=== PATIENT | male | born 1980 | race Caucasian/White ===

== ENCOUNTER 2020-03-04 09:52 | Emergency (ER) | payer OTHER, SELFPAY ==
--- NOTE | 2020-03-04 09:57 | ED.ABDPAIN ---
HPI - Abdominal Pain General Chief Complaint: Abdominal Pain Stated Complaint: stomach pain Time Seen by Provider: 03/04/20 09:57 Source: patient Mode of arrival: ambulatory Limitations: no limitations History of Present Illness HPI narrative: Started with vomiting with a lot of blood, daily drinker, pain is around belt line. States that he has never been told that his liver is bad MD elicited complaint: abdominal pain Pertinent past history: gastritis Onset (ago): day(s) (2) Pain Consistency: constant Location: other (belt line) Quality: stabbing Related Data Previous Rx's Medication Instructions Recorded pantoprazole [Protonix] 40 mg PO DAILY #30 ea 03/04/20 Allergies Allergy/AdvReac Type Severity Reaction Status Date / Time No Known Allergies Allergy Unverified 01/10/20 15:53 [No Known Allergies*] Review of Systems Constitutional: Reports no additional constitutional complaints Eyes: Reports no additional eye complaints Denies dizziness Cardiovascular: Reports no additional cardiovascular complaints Respiratory: Reports as per HPI Gastrointestinal: Reports no additional gastrointestinal complaints Musculoskeletal: Reports no additional musculoskeletal complaints Skin/Breast: Denies rash Reports system reviewed and no additional complaints, except as documented, Denies dizziness and Denies Sensory deficit (Neuro) Psychiatric: Denies anxiety Physical Exam Vital Signs: Vital Signs: Last Vital Signs Temp 98.4 F 03/04/20 09:58 Pulse 89 03/04/20 09:58 Resp 18 03/04/20 09:58 BP 151/98 H 03/04/20 09:58 Pulse Ox 98 03/04/20 09:58 Body Mass Index 27.6 Const: General: healthy appearing Nutritional Appearance: average body habitus Orientation/consciousness: oriented to person and patient oriented x3 Limitations: no limitations HENMT: Head: Yes normal to inspection Ears: external ears normal General nose exam: Normal external nose present Mouth: Normal oral and palatal mucosa present and oropharynx normal Throat: Yes posterior oropharynx normal Eyes: General: appearance normal, both eyes and all related structures Neck: Other: supple Neck: Yes normal visual inspection Chest: Chest palpation & inspection: normal inspection of the chest Resp: Auscultation: clear to auscultation bilaterally Cardio: Jugular venous distension: no JVD Rate: regular rate Rhythm: regular rhythm Heart sounds: S1 normal heart sound present and S2 normal heart sound present GI: Inspection: Yes normal to inspection Palpation (GI): Soft to palpation, nontender and No hepatosplenomegaly present Auscultation: normal bowel sounds : Other: rectal heme negative General: Yes no CVA tenderness Back/Spine/Pelvis: Back: no CVA tenderness Skin: General skin exam: no rashes or lesions noted Neuro: General: oriented to person and patient oriented x3 Cranial nerves: Yes CN's II-XII intact bilaterally Motor exam (neuro): 5/5 motor strength present throughout Sensory Exam: No Sensory deficit (Neuro) Extrem: General: Yes normal to inspection Psych: Appearance: grossly normal Course Course Course Narrative: NGT lavage negative , rectal heme negative will dc home MDM - Abdominal Pain MDM Narrative Medical decision making narrative: Ulcer disease vs, esophageal varices vs sourav castillo vs gastritis. With no active bleeding and no evidence of liver disease will dc home on protonix Differential Diagnosis Differential diagnosis: Likely abdominal pain, gastritis and peptic ulcer disease Lab Data Result diagrams: 03/04/20 10:04 03/04/20 10:04 Labs: Lab Results 03/04/20 03/04/20 03/04/20 Range/Units 10:04 10:04 10:04 WBC 8.3 (4.8-10.8) X10*3/uL RBC 4.50 L (4.60-5.80) X10*6/uL Hgb 15.5 (14.0-18.0) g/dl Hct 43.1 (42-52) % MCV 95.8 (80-98) fL MCH 34.4 H (27.0-33.0) pg MCHC 36.0 (31.0-36.0) g/dl RDW 11.9 (11.0-16.0) % Plt Count 192 (160-400) X10*3/uL MPV 10.6 (9.4-12.4) fL Immature Gran % (Auto) 0.1 (0.0-0.4) % Neut % (Auto) 77.3 H (45-73) % Lymph % (Auto) 13.5 L (20-40) % [facility] % (Auto) 8.6 (2-11) % Eos % (Auto) 0.1 (0-4) % Baso % (Auto) 0.4 (0-2) % Lymph # (Auto) 1.1 L (1.2-4.9) X10*3/uL [facility] # (Auto) 0.7 (0.1-1.2) X10*3/uL Eos # (Auto) 0.0 (0.0-0.4) X10*3/uL Baso # (Auto) 0.0 (0.0-0.2) X10*3/uL Abs Immat Gran (auto) 0.01 (0.00-0.03) X10*3/uL Absolute Neuts (auto) 6.4 (2.0-8.3) X10*3/uL Absolute Nucleated RBC 0.000 (0.0-0.012) X10*3/uL Nucleated RBC % (auto) 0.0 (0.0-0.2) /100WBC PT 11.7 (10.8-13.0) SEC INR 1.0 (0.9-1.1) Sodium 136 (135-145) mmol/L Potassium 3.8 (3.3-5.1) mmol/l Chloride 100 (96-108) mmol/L Carbon Dioxide 25 (22-29) mmol/L Anion Gap 15 (12-20) BUN 13 (9-16) mg/dL Creatinine 1.21 (0.5-1.4) mg/dL Estim Creat Clear Calc 93.4 Estimated GFR > 60 Random Glucose 118 H (60-115) mg/dL Calcium 9.4 (8.4-10.2) mg/dL Total Bilirubin 1.2 H (0.0-1.0) mg/dL Direct Bilirubin 0.5 (0.0-0.5) mg/dL AST 43 H (5-37) U/L ALT 36 (0-40) U/L Alkaline Phosphatase 81 (39-117) U/L Total Protein 7.6 (6.5-8.0) g/dL Albumin 4.7 (3.5-5.0) g/dL Lipase 34 (8-78) U/L Discharge Plan Discharge Clinical Impression: Gastritis Qualifiers: Gastritis type: other gastritis Chronicity: acute Gastritis bleeding: with bleeding Qualified Code(s): K29.01 - Acute gastritis with bleeding Patient Disposition: Home, Self-Care Instructions: Gastritis (ED) Prescriptions: New pantoprazole [Protonix] [address] for susp in packet 40 mg PO DAILY Qty: 30 RF: 0 PMFSH Past Medical History Medical History No known health problems Social History Social History Alcohol intake: current Alcohol intake frequency: 0-2 drinks per day Smoked in Last 30 Days: No Use of substances other than those prescribed or required for medical reasons: No Advance Directives: Yes Advance Directives Information Provided: Yes Advance Directives on File: No
[2020-03-04 09:58] VITALS: BP 151/98; PULSE 89; RESP 18; TEMP 36.9; O2SAT 98; BMI 27.6
[2020-03-04] MEDS: 0.9 % Sodium Chloride 500 ML 999 ML IVCONT (10:07)
[2020-03-04] MEDS: ondansetron HCL 4 MG/2 ML VIAL IVPUSH (10:12)
[2020-03-04] MEDS: Pantoprazole Sodium 40 MG/10 ML VIAL IVPUSH (10:12)
[2020-03-04 10:13] LABS: MANUAL DIFF FLAG NO
[2020-03-04 10:16] LABS: Basophils Percent Auto 0.4 % (0-2); Eosinophils Percent Auto 0.1 % (0-4); Hematocrit 43.1 % (42-52); Hemoglobin 15.5 g/dl (14.0-18.0); Imm Gran Abs Auto 0.01 X10*3/uL (0.00-0.03); Imm Gran Pct Auto 0.1 % (0.0-0.4); Lymphocytes Absolute Auto 1.1 X10*3/uL (1.2-4.9); Lymphocytes Percent Auto 13.5 % (20-40); Mean Corpuscular Hemoglobin 34.4 pg (27.0-33.0); Mean Corpuscular Volume 95.8 fL (80-98); Mean Platelet Volume 10.6 fL (9.4-12.4); Monocytes Absolute Auto 0.7 X10*3/uL (0.1-1.2); Monocytes Percent Auto 8.6 % (2-11); Neutrophils Absolute Auto 6.4 X10*3/uL (2.0-8.3); Neutrophils Percent Auto 77.3 % (45-73); Platelet Count 192 X10*3/uL (160-400); Red Cell Distribution Width 11.9 % (11.0-16.0); White Blood Count 8.3 X10*3/uL (4.8-10.8)
[2020-03-04 10:19] LABS: Prothrombin Time 11.7 SEC (10.8-13.0)
--- NOTE | 2020-03-04 10:43 | PC.NURSE ---
ng tube inserted and no blood noted. removed. aware. pt tolerated well.
[2020-03-04 10:46] LABS: Alanine Aminotransferase 36 U/L (0-40); Albumin Level 4.7 g/dL (3.5-5.0); Alkaline Phosphatase 81 U/L (39-117); Anion Gap 15 (12-20); Aspartate Amino Transferase 43 U/L (5-37); Bilirubin Direct 0.5 mg/dL (0.0-0.5); Bilirubin Total 1.2 mg/dL (0.0-1.0); Blood Urea Nitrogen 13 mg/dL (9-16); Calcium 9.4 mg/dL (8.4-10.2); Carbon Dioxide 25 mmol/L (22-29); Chloride 100 mmol/L (96-108); Creatinine Clr Calc Pharmacy 93.4; Estimated Glomerular Filt Rate > 60; Glucose Random 118 mg/dL (60-115); Lipase 34 U/L (8-78); Potassium 3.8 mmol/l (3.3-5.1); Sodium 136 mmol/L (135-145); Total Protein 7.6 g/dL (6.5-8.0)
== END 2020-03-04 11:48 | disposition home or self-care (01) ==
PROVIDERS: Emergency Provider Emergency Medicine; PCP Nurse Practitioner Family
DX: K29.01 Acute gastritis with bleeding (principal); Z79.899 Other long term (current) drug therapy
CPT/HCPCS: 36415; 80048; 80076; 83690; 85025; 85610; 96374; 96375; 99284; J2405

== ENCOUNTER 2022-08-16 07:48 | Outpatient (REF) | payer OTHER, SELFPAY ==
[2022-08-16 11:21] LABS: MANUAL DIFF FLAG NO
[2022-08-16 11:42] LABS: Appearance Urine Clear; Color Urine Yellow; Glucose Urine UA Negative (Negative); Leukocyte Esterase Urine Negative (Negative); Nitrite Urine Negative (Negative); PH 5.5 (5.0-9.0); Specific Gravity - Urine 1.025 (1.005-1.025); Urine Blood Negative (Negative); Urine Ketones Negative (Negative); Urine Protein Negative (Neg-Trace)
[2022-08-16 11:43] LABS: Basophils Percent Auto 0.6 % (0-2); Eosinophils Absolute Auto 0.2 X10*3/uL (0.0-0.4); Hematocrit 44.4 % (42.0-52.0); Hemoglobin 15.3 g/dl (14.0-18.0); Imm Gran Abs Auto 0.01 X10*3/uL (0.00-0.03); Imm Gran Pct Auto 0.2 % (0.0-0.4); Lymphocytes Absolute Auto 1.5 X10*3/uL (1.2-4.9); Lymphocytes Percent Auto 28.7 % (20-40); Mean Corpuscular HGB Conc 34.5 g/dl (31.0-36.0); Mean Corpuscular Hemoglobin 33.8 pg (27.0-33.0); Mean Corpuscular Volume 98.2 fL (80.0-98.0); Mean Platelet Volume 11.1 fL (9.4-12.4); Monocytes Absolute Auto 0.6 X10*3/uL (0.1-1.2); Monocytes Percent Auto 10.9 % (2-11); Neutrophils Absolute Auto 2.8 x10*3/uL (2.0-8.3); Neutrophils Percent Auto 55.6 % (45-73); Platelet Count 202 X10*3/uL (160-400); Red Blood Count 4.52 X10*6/uL (4.60-5.80); Red Cell Distribution Width 13.2 % (11.0-16.0); White Blood Count 5.1 X10*3/uL (4.8-10.8)
[2022-08-16 12:06] LABS: Alanine Aminotransferase 26 U/L (0-40); Albumin Level 4.3 g/dL (3.5-5.0); Alkaline Phosphatase 81 U/L (39-117); Anion Gap 9 (12-20); Aspartate Amino Transferase 23 U/L (5-37); Bilirubin Total 0.8 mg/dL (0.0-1.0); Blood Urea Nitrogen 19 mg/dL (9-16); Calcium 9.1 mg/dL (8.4-10.2); Carbon Dioxide 30 mmol/L (22-29); Chloride 106 mmol/L (96-108); Cholesterol 177 mg/dL; Estimated Glomerular Filt Rate > 60; Glucose Fasting 94 mg/dL (60-99); HDL Cholesterol 67 mg/dL; LDL Cholesterol Calculated 74 mg/dl; Potassium 4.5 mmol/L (3.3-5.1); Sodium 140 mmol/L (135-145); Total Protein 6.8 g/dL (6.5-8.0); Triglycerides 181 mg/dL
[2022-08-16 12:13] LABS: TSH reflex Free T4 3.28 uIU/mL (0.32-4.0)
[2022-08-21 16:24] LABS: Testosterone, Free 55.8 pg/mL (35.0-155.0); Testosterone, Total 338 ng/dL (250-1100)
== END 2022-08-16 07:49 | disposition home or self-care (01) ==
LOC: HO.HMGCLDS 07:48
PROVIDERS: PCP Nurse Practitioner Family; Visit Provider Nurse Practitioner Family
DX: Z00.00 Encounter for general adult medical examination without abnormal findings (principal); N52.9 Male erectile dysfunction, unspecified; F41.9 Anxiety disorder, unspecified
CPT/HCPCS: 36415; 80053; 80061; 81003; 84402; 84403; 84443; 85025

== ENCOUNTER 2025-01-18 12:31 | Emergency (ER) | payer OTHER, SELFPAY ==
--- NOTE | ~2025-01-18 | XR_ITS ---
EXAMINATION: XR FOREARM, RIGHT CLINICAL INFORMATION: trauma COMPARISON: None available. TECHNIQUE: AP and lateral views of the right forearm were obtained. FINDINGS: Image includes the wrist on the x-ray. There is borderline widening of the scapholunate interval which measures 2.5 mm. No fracture lines are identified. XR/XR forearm RT 2V IMPRESSION: No acute fracture is visualized. There is borderline widening of scapholunate interval, partial tear of scapholunate ligament is not ruled out. Electronically signed by: Jace Arce MD 01/18/2025 01:25 PM EDT
--- NOTE | ~2025-01-18 | XR_ITS ---
EXAMINATION: XR ELBOW, RIGHT CLINICAL INFORMATION: trauma COMPARISON: None available. TECHNIQUE: AP, lateral, and oblique views of the right elbow. FINDINGS: Posterior fat pad is minimally visible. Anterior fat pad is mildly prominent. There is enthesophyte at olecranon. Small marginal osteophytes are present involving the proximal radioulnar joint. No fracture line is identified. XR/XR elbow RT min 3V IMPRESSION: There is evidence of an underlying small elbow joint effusion, and so while a fracture is not clearly visualized, a nondisplaced radial head or neck fracture is not ruled out. Follow up x-ray 7-10 days. Electronically signed by: Jace Arce MD 01/18/2025 01:24 PM EDT
[2025-01-18 13:00] VITALS: BP 133/86; PULSE 83; RESP 18; TEMP 36.3; O2SAT 97; BMI 27.0
--- NOTE | 2025-01-18 13:02 | ED_ITS ---
HPI - General Adult General Chief complaint: Extremity Injury, Upper Stated complaint: Arm injury/lac @ work Time Seen by Provider: 01/18/25 14:05 Source: patient, RN notes reviewed and old records reviewed Mode of arrival: ambulatory Limitations: no limitations History of Present Illness ED Provider: Charbel HPI narrative: 44-year-old male presents for evaluation of a right arm injury. Patient reports he was at work. He states that a 1000 lb lift gate fell onto his right arm. The patient reports that he was able to pull his arm out immediately and his arm was not trapped for any period of time. His arm was crushed around the elbow for a brief 2nd. He feels some tightness in his hand His pain is mild pain He has an abrasion on the inside of the right elbow His pain is a 6/10 Related Data Previous Rx's ?Medication ?Instructions ?Recorded sertraline 25 mg tablet 25 mg PO DAILY 10 days #10 t abs 08/17/22 sildenafil 25 mg tablet (Viagra) 25 mg PO DAILY PRN se xual activity 08/17/22 #10 tabs Allergies Allergy/AdvReac Type Severity Reaction Status Date / Time No Known Allergies (No Known Allergy Verified 01/18/25 13:02 Allergies*) Review of Systems Musculoskeletal: Musculoskeletal: Reports arthralgias, Reports joint swelling and Reports limited range of motion PMFSH Past Medical History Medical History No known health problems Family History Family History Father Substance use disorder Mother Substance use disorder Sister Substance use disorder Social History Social History Housing: Apartment Alcohol intake: current Alcohol intake frequency: 0-2 drinks per day Patient Tobacco Use Status: Never used Tobacco e-Cigarette/Vaping Use: Never Used Second Hand Smoke Exposure: No Advance Directives: No Advance Directives Information Provided: Yes service: Yes Current occupational status: employed 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 Current occupational exposures/hazards: Yes Cognitive needs: No Hearing needs: No Vision needs: No Physical Exam ED Vital Signs: Vital Signs - 24 hr 01/18/25 13:00 Temperature 97.3 F Pulse Rate 83 Respiratory Rate 18 Blood Pressure 133/86 Pulse Oximetry 97 Oxygen Delivery Method Room Air BMI result Body Mass Index 27.0 Const General: healthy appearing, comfortable, no acute distress, alert and awake Nutritional Appearance: well nourished Orientation/consciousness: patient oriented x3 HENMT Head: Yes normocephalic and Yes atraumatic Eyes Eyelids: Yes eyelids normal Conjunctivae: conjunctivae normal Sclerae: sclerae normal Corneas: corneas normal Pupils: Equal, round and reactive pupils present EOM: EOMs intact bilaterally Neck Neck: Yes full ROM Resp Effort & Inspection: normal respiratory effort, able to speak in complete sentences and not labored Skin Other: There was a small, 1 x 2 cm abrasion, superficial to the medial aspect of the right upper extremity at the elbow. The deep lacerations, no bleeding General skin exam: elasticity normal Neuro General: patient oriented x3 Cranial nerves: Yes Equal, round and reactive pupils present and Yes Bilaterally intact EOM present Cognition (Neuro): normal cognition Extrem Other: The patient has slightly limited range of motion with pronation of the right upper extremity. He has good range of motion with flexion-extension of the right elbow. He is able to flex and extend all digits of the right hand as well as flex and extend the right wrist. He has no tenderness to the right wrist or hand. Course Course Course Narrative: RME, this is a rapid medical exam performed by Brennan Barger please refer to primary provider for complete H&P- 54-year-old male presents for evaluation of right upper extremity injury. He was at work rib a lift gate that was a 1000 lb for onto his right arm. He has a small abrasion does not medial aspect of the right elbow. He reports some tight feeling in his hand. Radial pulses are 2+ and equal, compartments are soft to the right upper extremity above the elbow and below the elbow. Distal sensation intact. Plan for x-ray Reevaluation(s) Reevaluation #1: Patient's forearm x-ray shows borderline widening of the scapholunate interval suggestive of partial tear. However the patient does not have any right wrist tenderness or decreased range of motion. This is favored to be a bit of an over-read Time: 14:33 Medical Decision Making Medical Decision Making MDM Narrative: 44-year-old male presents for evaluation of a right elbow injury. He had a crush injury but was not pinned for an extended period of time. He has quite good range of motion but slightly limited with pronation of the right upper extremity. X-ray shows an anterior fat pad consistent with an occult radial head fracture. I discussed this with the patient. He was placed in his sling in his discharged to follow up with Orthopedics. I did discuss return precautions and red flag symptoms for compartment syndrome. Currently his compartments to the right humerus and right forearm are soft, nontender. Radial pulses 2+ and equal. Distal sensation and capillary refill is intact. I have a very low suspicion for compartment syndrome acutely Differential Diagnosis Differential Diagnoses: The differential diagnosis associated with the presentation includes Right elbow fracture Elbow sprain Contusion Abrasion Compartment syndrome Radiology Impression Discussion of test interpretation with radiology: I have reviewed the radiologist's reading. Radiologist Impression: FINDINGS: Posterior fat pad is minimally visible. Anterior fat pad is mildly prominent. There is enthesophyte at olecranon. Small marginal osteophytes are present involving the proximal radioulnar joint. No fracture line is identified. XR/XR elbow RT min 3V IMPRESSION: There is evidence of an underlying small elbow joint effusion, and so while a fracture is not clearly visualized, a nondisplaced radial head or neck fracture is not ruled out. Follow up x-ray 7-10 days. Electronically signed by: Jace Arce MD 01/18/2025 01:24 PM EDT FINDINGS: Image includes the wrist on the x-ray. There is borderline widening of the scapholunate interval which measures 2.5 mm. No fracture lines are identified. XR/XR forearm RT 2V IMPRESSION: No acute fracture is visualized. There is borderline widening of scapholunate interval, partial tear of scapholunate ligament is not ruled out. Electronically signed by: Jace Arce MD 01/18/2025 01:25 PM EDT Discharge Plan Discharge Clinical Impression: Right elbow pain Patient Disposition: Home, Self-Care Instructions: Elbow Fracture (ED) Additional Instructions: Your x-ray does not show any obvious fracture. However elbow fractures are hard to see on x-ray. There is a shadow that indicates you likely have a joint effusion which could be related to a nondisplaced fracture. Wear the sling when you are up and walking. You may take it off at night. Follow up with Orthopedics at the number provided, you may require repeat imaging in 1 week Prescriptions: No Action sertraline 25 mg tablet 25 mg PO DAILY 10 Days Qty: 10 0RF sildenafil [Viagra] 25 mg tablet 25 mg PO DAILY PRN (Reason: sexual activity) Qty: 10 0RF Rx Instructions: administer 30 minutes to 4 hours before activity Referrals: [facility] [place] [Provider Group] Referral Note: Questionable radial head fracture on right. Stand Alone Forms: Work/School Release Interventions: ED Discharge Assessment Last Done: 01/18/25 14:32 Print Language: Serbian
[2025-01-18 14:32] VITALS: BP 133/86; PULSE 83; RESP 18; TEMP 36.3; O2SAT 97
== END 2025-01-18 14:33 | disposition home or self-care (01) ==
PROVIDERS: Emergency Provider Emergency Medicine Emergency Medical Services; PCP Nurse Practitioner Family
DX: S59.901A Unspecified injury of right elbow, initial encounter (principal); M25.521 Pain in right elbow; X50.0XXA Overexertion from strenuous movement or load, initial encounter; Y93.9 Activity, unspecified; Y92.9 Unspecified place or not applicable; Y99.8 Other external cause status
CPT/HCPCS: 73080; 73090; 99282; 99283

== ENCOUNTER → 2025-01-18 13:02 | Outpatient (BNV) | payer OTHER, SELFPAY | PROVIDERS: PCP Nurse Practitioner Family; Visit Provider Radiology Diagnostic Radiology | DX: M25.421 Effusion, right elbow (principal); S49.91XA Unspecified injury of right shoulder and upper arm, initial encounter | CPT/HCPCS: 73080; 73090 ==